=== PATIENT | male | born 1990 | race Caucasian/White ===

== ENCOUNTER 2016-05-08 17:16 | Emergency (ER) | payer OTHER ==
--- OUTSIDE RECORDS SUMMARY | 2016-05-08 18:31 | XMS REPORT | Continuity of Care Document ---
:1990 Author Organization [facility] [place] [address] Care Team Providers Name Role Phone Provider, None Per Patient Primary Care Provider Unavailable Source Comments This disclosure is being made pursuant to the [employer] program and maynot contain all information available regarding this patient.[facility] Active Allergies and Adverse Reactions Allergen Noted Date Severity Reactions Comments Risperidone 12/24/2012 High Swelling Current Medications Be aware that medications may not be up to date as of this document. Alwaysverify current medications with the patient. Not on file Active Problems Problem Noted Date Abrasions of multiple sites 12/24/2012 Elevated ETOH level 12/24/2012 Multiple contusions 12/24/2012 Social History Tobacco Use Types Packs/Day Years Used Date Never Assessed Last Filed Vital Signs Vital Sign Reading Time Taken Blood Pressure 124/72 12/24/2012 3:30 AM CDT Pulse 82 12/24/2012 3:30 AM CDT Temperature 36.6 C (97.9 F) 12/24/2012 2:54 AM CDT Respiratory Rate 20 12/24/2012 3:30 AM CDT Height 1.676 m (5' 6") 12/24/2012 2:42 AM CDT Weight 65.772 kg (145 lb) 12/24/2012 2:42 AM CDT Body Mass Index 23.41 12/24/2012 2:42 AM CDT Oxygen Saturation 96% 12/24/2012 3:30 AM CDT Plan of Care Health Maintenance Due Date Last Done Comments Retired-Pertussis Vaccine Adult 02/15/2008 Retired-Tetanus Vaccine Adult 02/15/2008 Retired-INFLUENZA VACCINE 11/28/2014 Results from Last 3 Months Not on file
--- OUTSIDE RECORDS SUMMARY | 2016-05-08 18:32 | XMS REPORT | Summary of Care ---
:1990 Author Organization [facility] Care Team Providers Name Role Phone No Family Phy, Physician Primary Care Physician Unavailable Encounter 03/23/16 - 03/25/16 [facility] [address] [facility] Denisse Sosa M.D. , [place] [address]- Discharge Disposition: Home Attending Physician: Bjorn CHAVEZ, Jonathan Schofield Admitting Physician: Stephanie CHAVEZ, Radha Stratton Referring Physician: Lalitha Physician, [place] Pt Vital Signs Most recent to oldest 1 2 3 [Reference Range]: Orientation Oriented to Person, Place, Time (03/23/16 8:28 PM) Sleep Quality Sleeping quielty with easy respirations (03/25/16 6:09 AM) Sleep, Number of Hrs 8 (03/25/16 6:09 AM) Respiratory Rate [12-30 19 brpm 19 brpm 20 brpm brpm] (03/25/16 11:58 AM) (03/25/16 8:44 AM) (03/24/16 10:04 PM) Blood Pressure 120/73mm hg 117/73mm hg 128/85mm hg [(reference range (03/25/16 11:58 AM) (03/25/16 8:44 AM) (03/24/16 10:04 PM) unavailable)/61-99 mm hg] Temperature F [97.7-99.9 98.1 degF 98.3 degF 98.4 degF degF] (03/25/16 11:58 AM) (03/24/16 10:04 PM) (03/23/16 8:28 PM) Height 170.2 cm (03/23/16 8:28 PM) Weight 80 kg (03/23/16 8:28 PM) Problem List Condition Effective Dates Status Health Status Informant Smoker(Confirmed)1 Active 1Problem added as a result of documented Tobacco Use. Allergies, Adverse Reactions, Alerts Substance Reaction Severity Status RisperDAL Active Medications clonazePAM 1 mg oral tablet 1 mg=1 Tab, PO, TID (Three Times Daily) Start Date: 03/25/16 Status: OrderedFLUoxetine 10 mg oral capsule 10 mg=1 Cap, PO, Daily (Once Daily) Start Date: 03/25/16 Status: OrderedKlonoPIN 2 mg oral tablet 2 mg=1 Tab, PO, TID (Three Times Daily), PRN PRN Anxiety Start Date: 03/23/16 Stop Date: 03/25/16 Status: Discontinuedquetiapine 100 mg oral tablet 100 mg=1 Tab, PO, HS (At Bedtime) Start Date: 03/25/16 Status: Ordered Results No data available for this section Immunizations No data available for this section Procedures Procedure Date Related Diagnosis Body Site Reduction of fracture of jaw Social History Social History Type Response Alcohol Current, 1-2 times per week, Stopped age 1 Years. Beer, Liquor, 6 drinks/episode average. 8.00 drinks/episode maximum. Started age 14 Years. Previous treatment: None. Alcohol use interferes withwork or home: No. Drinks more than intended: No. Others hurt by drinking: No. Ready to change: No. Household alcohol concerns: No.1 Substance Abuse Current, Marijuana, Daily, 1 Years, None, 14 Years, No, No, No , No, varied, Anxiety, None, current marijuanna smoker, Sober less than 6 months, none2 Smoking Status Current every day smoker; Number of years: 14; Type: Cigarettes ; Tobacco use per day: 20; Total pack years: 14; Started at age: 13.0; Stopped at age: 1; Previous treatment: None; Ready to change: No; Concerns about tobacco use in household: No3 1current weekly [id number] smoker Assessment and Plan No data available for this section
--- OUTSIDE RECORDS SUMMARY | 2016-05-08 18:32 | XMS REPORT | Continuity of Care Document ---
:1990 Author Organization [facility] ([facility]) Address [address] [place] [address] Phone [phone] Care Team Providers Name Role Phone Genevieve Mcconnell Primary Care Provider [phone] Source Comments This disclosure is being made pursuant to the Care Everywhere program, applicable federal and state laws, and may not contain all informaitonavailable regarding this patient.[facility] ([facility]) Active Allergies and Adverse Reactions Allergen Noted Date Severity Reactions Comments Other Agent 11/08/2014 Unknown Flea powder Risperidone 11/08/2014 Unknown Current Medications Prescription Sig. Disp. Refills Start Date End Date Status albuterol 90 Use 2 Puffs by Active mcg/Actuation inhaler inhalation every 6 hours as needed loratadine 10 mg tablet Take 10 mg by mouth Active daily busPIRone 15 mg tablet Take 15 mg by mouth Active 2 times daily. chlorproMAZINE 25 mg Take 25 mg by mouth Active tablet 3 times daily. Every 4-6 hours as needed SERTraline 100 mg tablet Take 100 mg by mouth Active daily. benzoyl peroxide 5 % Apply topically 2 Active topical lotion times daily. PHENYLEPHRINE/ACETAMINOP Take 1 tablet by Active HEN/CP (MEDICIDIN-D PO) mouth 3 times daily as needed. 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 Pulse 64 04/24/2015 9:13 AM HAT BODY INSPECTOR Temperature 36.4 C (97.5 F) 04/24/2015 9:13 AM HAT BODY INSPECTOR Respiratory Rate 22 12/27/2014 11:05 AM CDT Height 1.702 m (5' 7") 04/24/2015 9:13 AM HAT BODY INSPECTOR Weight 82.7 kg (182 lb 5.1 oz) 04/24/2015 9:13 AM HAT BODY INSPECTOR Body Mass Index 28.55 04/24/2015 9:13 AM HAT BODY INSPECTOR Oxygen Saturation 98% 12/27/2014 12:05 PM CDT Plan of Care Health Maintenance Due Date Last Done Comments Hepatitis B Vaccine (1 of 3 - Primary Series) 1990 Tdap Vaccine 02/15/2000 Lipid Disorder Screening 2007 MMR Vaccine 2007 Td Vaccine 2007 Varicella Vaccine (1 of 2 - Adult - No Evidence of 2007 Immunity) Pneumococcal Vaccine (1 of 1 - PPSV23) 02/15/2008 Influenza Vaccine: Seasonal (#1) 10/29/2015 Results from Last 3 Months Not on file
[2016-05-08 18:33] LABS: Hematocrit 48.3 % (42.0-52.0); Hemoglobin 16.3 gm/dL (13.5-18.0); Mean Corpuscular Hgb Conc 33.7 g/dl (32-36); Mean Platelet Volume 11.9 fl (6.0-9.5); Neutrophil % 62.9 % (42-75.0); Platelet Count 215 K/mm3 (150-450); Red Blood Count 5.43 M/mm3 (4.7-6.0); Red Cell Distribution Width 12.5 % (11.5-14.0); White Blood Count 9.5 K/mm3 (4.0-10.5)
[2016-05-08 18:42] LABS: Albumin * 4.1 gm/dl (3.4-5.0); Anion Gap 9.3 mmol/L (6.8-13.8); BUN/Creatinine Ratio 13.5 (9.0-21.6); Bilirubin, Total 0.3 mg/dL (0.0-1.1); Ca. Corrected For Albumin 9.1 mg/dL (8.4-10.2); Calcium * 9.5 mg/dL (7.9-10.9); Carbon Dioxide 32.3 mmol/L (24-32.6); Potassium 4.6 mmol/L (3.4-4.6); Total Protein 7.9 gm/dL (6.2-8.2)
[2016-05-08 20:05] LABS: Urine Appearance Clear; Urine Bacteria None Seen; Urine Bilirubin Negative (NEGATIVE); Urine Blood Negative /ul (NEGATIVE); Urine Color Yellow; Urine Ketone Negative (NEGATIVE); Urine Nitrite Negative (NEGATIVE); Urine Protein Negative (NEGATIVE); Urine RBC None Seen /hpf (0-5); Urine Urobilinogen Normal (NORMAL); Urine WBC None Seen /hpf (0-5)
--- NOTE | 2016-05-08 20:14 | ERNOTE ---
Abdominal HPI - Narrative Date of Service: 05/08/16 - General Chief Complaint: Abdominal Pain Time Seen by Provider: 05/08/16 18:03 Source: patient Exam Limitations: no limitations - Immun/Allergies/Home Medications Immunizatons: IMMUNIZATION HX Immunizations Up to Date Yes History of Influenza Vaccine No Hx Pneumococcal Vaccination No Allergies/Adverse Reactions: Allergies risperidone [From Risperdal] Allergy (Verified 05/08/16 17:38) flea powder Allergy (Uncoded 05/08/16 17:38) Home Medications: HOME MEDICATIONS Pantoprazole Sodium [Protonix] 40 mg PO DAILY #30 tab 05/08/16 [Last Taken Unknown] - History of Present Illness Narrative: Patient presents to the ED with vomiting and intermittent abdominal pain. He relates 3 weeks of vomiting each morning. This is usually a "stomach acid". Occasionally it may have a streak of blood in it but he hasn't seen this in several days. He never vomits anytime during the day except in the morning. With this he will get abdominal cramps and that cramping comes and goes. It can be intense upper abdomen and under his ribs but is almost always associated with the vomiting. Right now he denies any abdominal pain. No fever. he has had 3 weeks of off and on disarrhea, non-bloody. No specific CP or SOB, just cramping up under his ribs with the vomiting. Has not seen anyone else for this. Timing: intermittent Quality: moderate Activities at Onset: none Modifying Factors - (Improves): Present: other - nothing Modifying Factors - (Worsens): Present: other - nothing Associated Symptoms: Present: nausea, vomiting Prior Abdominal Problems: Present: other - Hep C for "a long time" Prior Treatment: Absent: recently seen Review of Systems - Review of Systems Constitutional: Absent: fever Respiratory: Absent: shortness of breath Cardiology: Absent: chest pain Gastrointestinal/Abdominal: Present: See HPI Genitourinary: Absent: dysuria Musculoskeletal: Absent: back pain - Patient's Past Medical History Patient History - Medical: Anxiety, Depression, Other Patient History - Cardiac/Respiratory: No pertinent hx Patient History - Cancer: No Hx of Cancer Patient History - Surgical Procedures: Other Patient History - Other: Other - Social History Living Situations: home Psych History: Hx of Anxiety, Hx of Depression Smoking Status: Current every day smoker Alcohol Use: heavy Drug Use: marijuana, meth, other - Immunizations Immunizations Up to Date: Yes Hx Pneumococcal Vaccination: No History of Influenza Vaccine: No Physical Exam - Physical Exam General Appearance: Present: alert, no apparent distress Eye Exam: Normal inspection: bilateral, PERRL: bilateral Ears, Nose, Throat: Present: normal ENT inspection Neck: Present: normal inspection Respiratory: Present: no respiratory distress, normal breath sounds, no accessory muscle use, lungs clear Cardiovascular/Chest: Present: regular rate, rhythm, normal peripheral pulses Gastrointestinal/Abdominal: Present: normal bowel sounds, nontender, soft, no organomegaly, other - I can elicit no tenderness in the abdomen. Rectal Exam: Present: other - declined Back Exam: Present: normal range of motion Extremity Exam: Present: normal range of motion Neurological Exam: Present: alert, normal mood/affect, no motor/sensory deficits , mergers and acquisitions attorney II-XII nml as tested Skin Exam: Absent: skin rash ED Progress - Results and Orders Patient's Lab Results:: I have reviewed the patient's lab results. - Vital Signs Patient's Vital Signs:: I have reviewed the patient's vital signs. Vital Signs: Vital Signs 05/08/16 05/08/16 17:27 19:30 Temperature 36.5 C 36.9 C Pulse Rate 79 82 Respiratory 20 18 Rate Blood Pressure 137/83 122/86 O2 Sat by Pulse 100 96 Oximetry - X-Ray X-Ray #1 X-Ray: abdomen Interpretation: Reviewed by me X-ray Comments: I reviewed official radiology report - Progress/Reassessment Chief Complaint: Abdominal Pain Progress Note-Subjective: 05/08/16 20:09 I offered the patient a CT scan of the abdomen but he declines this and wishes to go home. He understands risks and benefits but declines further workup. Abd non-tender at this time. Departure - Departure Clinical Impression: Vomiting, Abdominal cramps Disposition: Home self-care Condition: Stable Instructions: Abdominal Pain, Adult, [id number] Additional Instructions: Rest. Clear liquids for now. Medication as directed. Return if you change your mind about having the CT scan or if your condition worsens or changes in any way. Follow-up with primary doctor within 3 days for a re-check. Prescriptions: Pantoprazole Sodium [Protonix] 40 mg PO DAILY #30 tab
[2016-05-08 20:24] VITALS: BP 120/82
== END 2016-05-08 20:20 | disposition home or self-care (01) ==
LOC: ER 17:16
DX: R11.10 Vomiting, unspecified (principal); R10.9 Unspecified abdominal pain; F17.210 Nicotine dependence, cigarettes, uncomplicated

== ENCOUNTER 2016-06-05 11:08 | Day surgery (SDC) | payer OTHER ==
[~2016-06-05 11:08] MED LIST: DEXAMETHASONE SOD PHOSPHATE 10 MG/ML VIAL IV PRN; MORPHINE SULFATE 2 MG/ML DISP.SYRIN IV PRN; MORPHINE SULFATE 4 MG/ML SYRG IV PRN; ONDANSETRON HCL/PF 2 MG/ML VIAL IV PRN; PROMETHAZINE HCL 5 MG in DEXTROSE 5 % IN WATER 50 ML IV PRN; RINGERS SOLUTION,LACTATED 1,000 ML IV PRN; oxyCODONE HCL 5 MG/5 ML UDC PO PRN
--- OUTSIDE RECORDS SUMMARY | 2016-06-05 11:11 | XMS REPORT | Continuity of Care Document ---
:1990 Author Organization [facility] ([facility]) Address [address] [place] [address] Phone [phone] Care Team Providers Name Role Phone Genevieve Mcconnell Primary Care Provider [phone] Source Comments This disclosure is being made pursuant to the Care Everywhere program, applicable federal and state laws, and may not contain all informaitonavailable regarding this patient.[facility] ([facility]) Active Allergies and Adverse Reactions Allergen [...] Taken Blood Pressure 156/77 04/24/2015 9:13 AM 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
--- OUTSIDE RECORDS SUMMARY | 2016-06-05 11:11 | XMS REPORT | Continuity of Care Document ---
:1990 Author Organization [facility] [place] [address] Care Team Providers Name Role Phone Provider, None Per Patient Primary Care Provider Unavailable Source Comments This disclosure is being made pursuant to the [employer] program and maynot contain all information available regarding this patient.[facility] Active Allergies and Adverse Reactions Allergen Noted [...]
[2016-06-05] MEDS ORDERED: RINGERS SOLUTION,LACTATED 1,000 ML IV ONE ×2 (11:40→12:30)
[2016-06-05] MEDS ORDERED: BUPIVACAINE HCL 50 ML VIAL IJ ONE (12:26)
[2016-06-05 14:14] VITALS: BP 130/76
== END 2016-06-05 11:09 | disposition home or self-care (01) ==
LOC: AMB 11:08
PROVIDERS: ATTEND Allergy & Immunology
PROC: 0CTQXZZ Resection of Adenoids, External Approach (ICD-10-PCS; 2016-06-05)
PROC: 0CTPXZZ Resection of Tonsils, External Approach (ICD-10-PCS; principal; 2016-06-05 12:45)
DX: J35.03 Chronic tonsillitis and adenoiditis (principal); Z68.24 Body mass index [BMI] 24.0-24.9, adult

== ENCOUNTER 2016-06-06 17:16 | Emergency (ER) | payer OTHER ==
[2016-06-06 17:25] VITALS: BP 136/80
[2016-06-06] MEDS ORDERED: diphenhydrAMINE HCL 25 MG CAPSULE PO ONE (17:33)
[2016-06-06] MEDS ORDERED: diphenhydrAMINE HCL 25 MG CAPSULE ONE (17:42)
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
--- OUTSIDE RECORDS SUMMARY | 2016-06-06 17:54 | XMS REPORT | Continuity of Care Document ---
:1990 Author Organization [facility] [place] [address] Care Team Providers Name Role Phone Provider, None Per Patient Primary Care Provider Unavailable Source Comments This disclosure is being made pursuant to the [employer] program and maynot contain all information available regarding this patient.[facility] Active Allergies and Adverse Reactions Allergen Noted [...]
--- OUTSIDE RECORDS SUMMARY | 2016-06-06 17:55 | XMS REPORT | Continuity of Care Document ---
:1990 Author Organization [facility] ([facility]) Address [address] [place] [address] Phone [phone] Care Team Providers Name Role Phone Genevieve Mcconnell Primary Care Provider [phone] Source Comments This disclosure is being made pursuant to the Care Everywhere program, applicable federal and state laws, and may not contain all informaitonavailable regarding this patient.[facility] ([facility]) Active Allergies and Adverse Reactions Allergen Noted [...] Taken Blood Pressure 156/77 04/24/2015 9:13 AM 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
== END 2016-06-06 18:03 | disposition home or self-care (01) ==
LOC: ER 17:16
DX: L27.0 Generalized skin eruption due to drugs and medicaments taken internally (principal); T40.2X5A Adverse effect of other opioids, initial encounter

== ENCOUNTER 2016-06-10 07:59 | Emergency (ER) | payer OTHER ==
[2016-06-10 08:07] VITALS: BP 146/83
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
--- OUTSIDE RECORDS SUMMARY | 2016-06-10 08:36 | XMS REPORT | Continuity of Care Document ---
:1990 Author Organization [employer] [place] [address] Care Team Providers Name Role Phone Provider, None Per Patient Primary Care Provider Unavailable Source Comments This disclosure is being made pursuant to the [email or web address] program and maynot contain all information available regarding this patient.[employer] Active Allergies and Adverse Reactions Allergen Noted [...]
--- OUTSIDE RECORDS SUMMARY | 2016-06-10 08:36 | XMS REPORT | Continuity of Care Document ---
:1990 Author Organization [facility] ([facility]) Address [address] [place] [address] Phone [phone] Care Team Providers Name Role Phone Genevieve Mcconnell Primary Care Provider [phone] Source Comments This disclosure is being made pursuant to the Care Everywhere program, applicable federal and state laws, and may not contain all informaitonavailable regarding this patient.[facility] (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
== END 2016-06-10 08:48 | disposition home or self-care (01) ==
LOC: ER 07:59
DX: G89.18 Other acute postprocedural pain (principal); Z90.89 Acquired absence of other organs; F17.210 Nicotine dependence, cigarettes, uncomplicated

== ENCOUNTER 2016-10-27 17:59 | Emergency (ER) | payer OTHER ==
[2016-10-27 18:08] VITALS: BP 134/72
--- OUTSIDE RECORDS SUMMARY | 2016-10-27 18:14 | XMS REPORT | Clinical Summary ---
:1990 Author Organization [facility] Address [place] [address] Care Team Providers Name Role Phone Unavailable Primary Care Provider Unavailable Source Comments This disclosure is being made pursuant to the [employer] program and maynot contain all information available regarding this patient.[facility] Allergies Active Allergy Reactions Severity Noted Date Comments Risperidone Swelling High 12/24/2012 Current Medications Be aware that medications may not be up to date as of this document. Alwaysverify current medications with the patient. Not on file Active Problems Problem Noted Date Abrasions of multiple sites 12/24/2012 Elevated ETOH level 12/24/2012 Multiple contusions 12/24/2012 Social History Tobacco Use Types Packs/Day Years Used Date Never Assessed Sex Assigned at Date Recorded Not on file Last Filed Vital Signs Vital Sign Reading Time Taken Blood Pressure 124/72 12/24/2012 3:30 AM CDT Pulse 82 12/24/2012 3:30 AM CDT Temperature 36.6 C (97.9 F) 12/24/2012 2:54 AM CDT Respiratory Rate 20 12/24/2012 3:30 AM CDT Oxygen Saturation 96% 12/24/2012 3:30 AM CDT Inhaled Oxygen Concentration - - Weight 65.8 kg (145 lb) 12/24/2012 2:42 AM CDT Height 167.6 cm (5' 6") 12/24/2012 2:42 AM CDT Body Mass Index 23.4 12/24/2012 2:42 AM CDT Plan of Treatment Health Maintenance Due Date Last Done Comments Retired-Pertussis Vaccine Adult 02/15/2008 Retired-Tetanus Vaccine Adult 02/15/2008 Retired-INFLUENZA VACCINE 11/28/2014 Results Not on filefrom Last 3 Months
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
[2016-10-27] MEDS ORDERED: HYDROcodone/ACETAMINOPHEN 1 EACH TABLET PO ONE (18:41)
[2016-10-27] MEDS ORDERED: HYDROcodone/ACETAMINOPHEN 1 EACH TABLET ONE (18:46)
== END 2016-10-27 19:12 | disposition home or self-care (01) ==
LOC: ER 17:59
PROC: 2W3EX1Z Immobilization of Right Hand using Splint (ICD-10-PCS; principal; 2016-10-27)
DX: S52.611A Displaced fracture of right ulna styloid process, initial encounter for closed fracture (principal); X58.XXXA Exposure to other specified factors, initial encounter; Y93.89 Activity, other specified; Y92.9 Unspecified place or not applicable; F17.200 Nicotine dependence, unspecified, uncomplicated

== ENCOUNTER 2016-12-13 03:16 | Emergency (ER) | payer OTHER ==
[2016-12-13 03:23] LABS: Hematocrit 43.4 % (42.0-52.0); Hemoglobin 15.3 gm/dL (13.5-18.0); Mean Cell Volume 86.3 fl (78-100); Mean Corpuscular Hemoglobin 30.4 pg (27-31); Mean Corpuscular Hgb Conc 35.3 g/dl (32-36); Mean Platelet Volume 10.9 fl (6.0-9.5); Neutrophil % 49.3 % (42-75.0); Platelet Count 254 K/mm3 (150-450); Red Blood Count 5.03 M/mm3 (4.7-6.0); Red Cell Distribution Width 13.3 % (11.5-14.0); White Blood Count 12.2 K/mm3 (4.0-10.5)
[2016-12-13 03:35] LABS: Prothrombin Time (Patient) 10.2 Seconds (9.4-11.4)
[2016-12-13 03:40] LABS: INR 0.98 INR (0.90-1.10); Partial Thrombolplastin Time 23.2 Seconds (24-32)
[2016-12-13 03:46] LABS: Albumin * 4.1 gm/dl (3.4-5.0); Anion Gap 18.1 mmol/L (6.8-13.8); BUN/Creatinine Ratio 17.1 (9.0-21.6); Bilirubin, Total 0.7 mg/dL (0.0-1.1); Ca. Corrected For Albumin 8.2 mg/dL (8.4-10.2); Calcium * 8.6 mg/dL (7.9-10.9); Carbon Dioxide 23.4 mmol/L (24-32.6); Potassium 3.5 mmol/L (3.4-4.6); T4 Free * 1.3 ng/dL (0.76-1.46); TSH * 3.481 uIU/mL (0.358-3.74); Total Protein 7.7 gm/dL (6.2-8.2)
[2016-12-13] MEDS ORDERED: MORPHINE SULFATE 4 MG/ML SYRG IV ONE ×2 (03:55→04:12)
[2016-12-13] MEDS ORDERED: MORPHINE SULFATE 4 MG/ML SYRG ONE ×2 (03:55→04:09)
[2016-12-13] MEDS ORDERED: ONDANSETRON HCL/PF 2 MG/ML VIAL ONE (04:06)
[2016-12-13] MEDS ORDERED: ONDANSETRON HCL/PF 2 MG/ML VIAL IV ONE (04:11)
[2016-12-13 04:33] LABS: Urine Bilirubin Negative (NEGATIVE); Urine Ketone 5 mg/dL (NEGATIVE); Urine Nitrite Negative (NEGATIVE); Urine Protein 100 mg/dL (NEGATIVE); Urine Urobilinogen Normal (NORMAL); Urine pH 5.5 pH (5.0-7.0)
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
[2016-12-13 04:37] LABS: Urine Appearance Clear; Urine Blood 10 /ul (NEGATIVE); Urine Color Yellow; Urine WBC 0-5 /hpf (0-5)
[2016-12-13 04:38] LABS: Urine Bacteria None Seen
[2016-12-13 04:43] VITALS: BP 151/73
[2016-12-13 04:45] LABS: Cocaine Ur Negative (NEGATIVE); Urine Barbiturate Negative (NEGATIVE); Urine Benzodiazepines Negative (NEGATIVE); Urine PCP Negative (NEGATIVE)
[2016-12-13 04:46] LABS: Urine Opiates Positive (NEGATIVE); Urine THC Positive (NEGATIVE)
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
== END 2016-12-13 04:55 | disposition short-term general hospital (02) ==
LOC: ER 03:16
DX: T14.8 Other injury of unspecified body region (principal); S27.321A Contusion of lung, unilateral, initial encounter; F10.920 Alcohol use, unspecified with intoxication, uncomplicated; S22.42XA Multiple fractures of ribs, left side, initial encounter for closed fracture; V03.00XA Pedestrian on foot injured in collision with car, pick-up truck or van in nontraffic accident, initial encounter; Y93.89 Activity, other specified; Y92.9 Unspecified place or not applicable; F17.200 Nicotine dependence, unspecified, uncomplicated
CPT/HCPCS: 36415; 71010; 71260; 72125; 72128; 72131; 74177; 80053; 80307; 81001; 82150; 84439; 84443; 85025; 85610; 85730; 86850; 86900; 96374; 96375; 99291; G0390; G0481; J2405

== ENCOUNTER 2016-12-17 08:49 | Emergency (ER) | payer OTHER ==
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
[2016-12-17 10:41] VITALS: BP 124/84
== END 2016-12-17 10:42 | disposition home or self-care (01) ==
LOC: ER 08:49
DX: S22.42XD Multiple fractures of ribs, left side, subsequent encounter for fracture with routine healing (principal); K59.03 Drug induced constipation; V03.00XA Pedestrian on foot injured in collision with car, pick-up truck or van in nontraffic accident, initial encounter; Y93.9 Activity, unspecified; Y92.9 Unspecified place or not applicable